=== PATIENT | male | born 1990 ===

== ENCOUNTER 2020-05-19 09:48 | Observation (INO) ==
--- NOTE | 2020-05-06 16:37 | Anesthesiology Consultation ---
Date of Service May 06, 2020 Assessment & Plan (1) Encounter for pre-operative examination: COVID Status: As of 05/06 nurse assessment, patient denies travel to endemic area, known exposure/sick contacts, or symptoms of COVID19. Preoperative COVID19 testing to be completed on 05/10 at [facility]. Chart Review Chart Review: Acceptable Risk for Surgery and Patient NOT seen in Pre Admission Testing History Surgery Operation Date: 05/19/20 11:00 Proposed Procedures p Laparoscopic Splenic Cyst Fenestration, Possible Open, Possible Open Splenectomy - Rik Hammond DO, FACS Height/Weight Height: 5 ft 11 in Weight: 77.111 kg Allergies Allergy/AdvReac Type Severity Reaction Status Date / Time No Known Allergies Allergy Verified 05/06/20 13:17 Medications Home Medications Medication Instructions Recorded Confirmed Last Taken No Known Home Medications 04/05/20 05/06/20 Unknown Past Medical History Medical History Splenic cyst, acquired Past Surgical History Surgical History History of laparoscopy ON SPLEEN Social History Smoking Status: Never smoker Do You Dip or Chew Tobacco: No Hx Alcohol Use: Yes Alcohol type: beer alcohol intake frequency: other Alcohol Intake Frequency Comment: 1 X COUPLE MONTHS Hx Substance Use: No Testing Laboratory Results 04/29/20 WBC: 6.24 H/H: 15.5/46.9 PLATELETS: 187 SODIUM: 138 POTASSIUM: 4.0 CHLORIDE: 104 CO2: 33 BUN: 10 CREATININE: 0.80 GLUCOSE: 84
[~2020-05-19 09:48] MED LIST: LACTATED RINGER'S 1,000 ML IV SCH; ceFAZolin 2000MG 2,000 MG/15 ML SYR IV SCH
--- NOTE | 2020-05-19 10:29 | History & Physical Bridge Note ---
Date of Service May 19, 2020 History & Physical Bridge Note I have examined the patient, reviewed the History & Physical and in the interval since the performance of the History & Physical I have noted the following changes of clinical significance: no changes noted
[2020-05-19] MEDS ORDERED: LIDOCAINE HCL 2% 2 ML VIAL/AMP(20MG/ML) INFIL ONE (11:42)
[2020-05-19] MEDS ORDERED: fentaNYL citrate 100 MCG/2 ML VIAL ONE ×2 (11:42→11:43)
[2020-05-19] MEDS ORDERED: PROPOFOL IV EMULSION 10 MG/ML 20 ML VIAL IV ONE (11:42)
[2020-05-19] MEDS ORDERED: GLYCOPYRROLATE 0.2 MG/ML VIAL ONE ×2 (11:42→15:09)
[2020-05-19] MEDS ORDERED: MIDAZOLAM HCL 1 MG/ML 2ML VIAL ONE (11:42)
[2020-05-19] MEDS ORDERED: ONDANSETRON INJ 2 MG/ML 2 ML VIAL ONE (11:42)
[2020-05-19] MEDS ORDERED: DEXAMETHASONE SOD INJ 4 MG/ML VIAL ONE (11:42)
[2020-05-19] MEDS ORDERED: NEOSTIGMINE METHYLSULFATE 5 MG/5 ML SYR ONE ×2 (11:42→15:09)
[2020-05-19] MEDS ORDERED: ONDANSETRON INJ 2 MG/ML 2 ML VIAL IV PRN ×2 (11:51→17:10)
[2020-05-19] MEDS ORDERED: ePHEDrine sulfate 50 MG/ML AMP IV PRN (11:51)
[2020-05-19] MEDS ORDERED: ATROPINE SULFATE 0.1 MG/ML 10ML SYR IV PRN (11:51)
[2020-05-19] MEDS ORDERED: HYDROmorphone INJ 1 MG/ML SYRINGE IV PRN (11:51)
[2020-05-19] MEDS ORDERED: BUPIVACAINE 0.5 % 5 MG/1 ML MPF 30ML VIAL ONE (13:25)
[2020-05-19] MEDS ORDERED: ROCURONIUM BROMIDE 10 MG/ML 5 ML VIAL IV ONE ×5 (14:40→15:09)
[2020-05-19] MEDS ORDERED: ACETAMINOPHEN 1000 MG/100 ML IV IV ONE (14:43)
--- NOTE | 2020-05-19 15:21 | Operative Report ---
PG Post Operative Report Pre & Post Diagnosis Operation Date: 05/19/20 11:20 Pre-Op Diagnosis: Splenic Cyst Post-Op Diagnosis: Splenic Cyst I identified the patient and participated in the time-out.: Yes Procedure Operation Date: 05/19/20 11:20 Actual Procedures p Laparoscopic Splenic Cyst Fenestration(Not Applicable) - Rik Hammond DO, JASON Surgeon Rik Hammond DO, JASON Dungeon Master Neri Roche Estimated Blood Loss 30 Findings Consistent with Post-Op Diagnosis Adhesions of dome of spleen to diaphragm from prior trauma. We unroofed several centimeters of the splenic subcapsular seroma and fenestrated as much of the cyst wall as we could. A portion of the cyst wall was sent for specimen and some fluid was sent for cytology. A 10 mm flat GLADIS drain was placed into the splenic subcapsular seroma cavity. Specimens Splenic cyst fluid for cytology Splenic cyst wall Drains 10 mm GLADIS drain in splenic cyst cavity Anesthesia Type General Complications none Disposition Accompanied Patient To Recovery: No Disposition: Recovery Room Indications 29-year-old male with history of trauma with splenic laceration and subcapsular hematoma. Patient developed a subcapsular seroma and is undergone several drainage procedures with temporary relief of his symptoms but recurrence of the fluid and abdominal discomfort, fullness, and early satiety. Discussed his options to include continued aspirations versus cyst fenestration, patient elects for cyst fenestration. Plan for laparoscopic splenic cyst fenestration, possible open, possible splenectomy. The risks of the procedure were discussed, all questions were answered, and the patient agreed to proceed with surgery as planned. Description of Procedure The patient was appropriately identified, consented, and taken to the operating room where he was placed in the supine position with both arms tucked and a roll under his left side. General endotracheal anesthesia was induced. SCDs, a safety belt, and a Ramírez catheter were placed. Preoperative antibiotics were given. His abdomen was prepped and draped in standard sterile fashion. A surgical timeout was performed and all parties were in agreement that this was correct patient and procedure to be performed we continued as planned. An incision was made overlying the rectus muscle superior and to the right of the umbilicus. Veress needle was inserted and saline drop test confirmed entry into the abdomen. The abdomen was insufflated with carbon dioxide which the patient tolerated without incident. The Veress needle was removed and the abdomen is entered using a 5 mm port and the Optiview technique. Patient was then placed in reverse Trendelenburg position. The abdomen was explored with the laparoscope and no damage from initial Veress needle or trocar placement was noted. There were adhesions of omentum to the spleen and omentum to the abdominal wall the left upper quadrant. There was also adhesions of the spleen to the diaphragm. 5 mm ports then placed in the left lower quadrant in the right upper quadrant. Some of the adhesions were taken down with harmonic scalpel. The spleen was densely adhered to the diaphragm at the dome. We were able to identify the area of the cyst. A large needle was placed into the cyst and some of the fluid was aspirated and sent to cytology. We then were able to unroofed a 5 x 4 cm segment of the cyst. This was removed with a 5 mm bag and sent to pathology as specimen. The remainder of the contents of the cyst were suctioned. The cyst wall was then fulgurated using electrocautery. Most of the fulguration occurred where we could safely see which was in the superior and lateral portions of the cyst wall. A 10 mm GLADIS drain was then inserted into the cyst cavity. Hemostasis appeared to be excellent. The 5 mm ports were removed under direct visualization and the abdomen was all owed to collapse. The drain was sutured into the right upper quadrant incision site with a 2-0 nylon suture. The remaining port sites were closed with 4-0 Monocryl subcuticular sutures. Dermabond was placed over the incisions and a drain dressing was placed over the GLADIS drain. The patient was extubated and taken to recovery where he recovered without apparent incident. All sponge, needle, and instrument counts were correct with occlusion of the case. The Ramírez catheter was removed prior to extubation. The patient tolerated procedure well. The physician's corporate law assistant was present and scrubbed for the entire the procedure. He was critical in positioning the patient, prepping and draping, driving the laparoscope, closure the incisions, placement the dressings. I attest to the content of the Intraoperative Record and any orders documented therein. Any exceptions are noted below.
[2020-05-19] MEDS: fentaNYL citrate 100 MCG/2 ML VIAL IV PRN ×3 (16:03→16:18)
--- NOTE | 2020-05-19 16:30 | Anesthesiology Progress Note ---
Date of Service May 19, 2020 Anesthesia Post Procedure Vital Signs Vital Signs: Temp Pulse Pulse Resp BP BP Pulse Ox 05/19/20 16:25 64 12 118/71 100 05/19/20 16:15 68 13 114/67 100 05/19/20 16:05 72 12 124/70 100 05/19/20 15:55 55 L 11 L 119/68 100 05/19/20 15:45 52 L 12 113/69 100 05/19/20 15:39 36.4 C L 63 17 123/76 100 05/19/20 10:16 36.7 C 55 L 20 110/75 99 Pain Intensity Abdomen: Pain Intensity: 4 Transfer of Care Handoff Completed per policy Notes Mental Status: alert / awake / arousable and participated in evaluation Patient Amnestic to Procedure: Yes Nausea / Vomiting: adequately controlled Pain: adequately controlled Airway Patency, RR, SpO2: stable & adequate BP & HR: stable & adequate Hydration State: stable & adequate Anesthetic Complications: no major complications apparent and Pt Satisfied with anesthetic care
[2020-05-19] MEDS ORDERED: MoRPHine SULFATE 4 MG/ML 1 ML CARP\\VIAL IV PRN (17:10)
[2020-05-19] MEDS ORDERED: MoRPHine SULFATE 2 MG/ML CARP IV PRN (17:10)
[2020-05-19] MEDS ORDERED: oxyCODONE/ACETAMINOPHEN 5mg/325mg TAB PO PRN ×2 (17:10)
[2020-05-19] MEDS ORDERED: MoRPHine SULFATE 4 MG/ML 1 ML CARP\\VIAL ONE (17:13)
[2020-05-19] MEDS: LACTATED RINGER'S 1,000 ML IV SCH ×2 (17:15→22:42)
[2020-05-20 07:07] LABS: Hematocrit (blood only) 41.4 % (42-52); Hemoglobin 14.2 g/dL (14.0-18.0); Immature Granulocytes # (auto) 0.02 K/uL (0.00-0.02); Immature Granulocytes % (auto) 0.2 %; Lymphocytes # (auto) 1.08 K/uL (1.2-3.4); Lymphocytes % (auto) 10.6 %; Mean Corpuscular Hemoglobin 27.8 pg (25-34); Mean Corpuscular Hgb Conc 34.3 g/dL (32-36); Mean Platelet Volume 12.2 fL (7.4-10.4); Monocytes # (auto) 0.76 K/uL (0.11-0.59); Monocytes % (auto) 7.5 %; Neutrophils # (auto) 8.34 K/uL (1.4-6.5); Neutrophils % (auto) 81.7 %; Platelet Count 188 K/uL (130-400); RDW Coefficient of Variation 13.3 % (11.5-14.5); RDW Standard Deviation 39.9 fL (36.4-46.3); Red Blood Count 5.11 M/uL (4.7-6.1)
[2020-05-20 07:46] LABS: BUN Creatinine Ratio 13.9 (10-20); Blood Urea Nitrogen 9 mg/dl (7-18); Calcium 8.7 mg/dl (8.5-10.1); Carbon Dioxide 26 mmol/L (21-32); Chloride 108 mmol/L (98-107); Creatinine Clr Calc Pharmacy 173.8 ml/min; Est GFR (African American) > 150.0; Est GFR (Non-African American) 130.9; Glucose 103 mg/dl (70-99); Potassium 4.3 mmol/L (3.5-5.1); Sodium 140 mmol/L (136-145)
[2020-05-20] MEDS: LACTATED RINGER'S 1,000 ML IV SCH (11:03)
--- NOTE | 2020-05-20 11:33 | Surgery Progress Note ---
Date of Service May 20, 2020 Assessment & Plan (1) Splenic cyst, acquired: POD#1 laparoscopic splenic cyst fenestration VSS, WBC 10, Hbg 14.2, Plt 188 Patient having some abdominal pain, but overall is being managed with prn medication Incisions c/d/i GLADIS drain serosanguineous (90cc); will ask nursing to perform GLADIS drain teaching with pt prior to discharge Pt will need to follow up in clinic in next few days for drain removal Will plan on discharge today, dispo instructions given Admission and Anticipated Discharge Date Admission Date: May 19, 2020 Supervising Physician Co-Signing Physician Notes Patient seen and examined, labs reviewed, agree with above. POD #1 laparoscopic splenic cyst fenestration. Overall doing well, complains of some pain but this is controlled with medications. Tolerating small amount of his diet to keep himself hydrated. On exam drain is serosanguineous, abdomen is soft. Incisions with no evidence of infection. Hematocrit stable. Plan for discharge to home with drain in place, follow-up next week for drain removal. Wound care instructions and activity restrictions reviewed. He will receive drain care instructions prior to departure. Return precautions given, call with questions or concerns Subjective Patient states he is doing fairly well. Having some pain in epigastric/LUQ regions, but says it is better than yesterday and is manageable with pain medication. He is tolerating a diet without n/v. Physical Exam Physical Exam: awake/alert Constitutional: well developed and well nourished no acute distress Respiratory: normal respiratory effort Gastrointestinal (Abdomen): Inspection/Auscultation: + abdominal surgical incision (c/d/i with dermabond overtop, no signs of infection) and + abdominal surgical drain present (GLADIS serosang with 90cc documented) Percussion/Palp ation: + abdomen tender (some ttp epigastric and LUQ regions) and abdomen soft Results & Data ([facility]) Vital Signs (Past 12 Hours) Vital Signs Temp Pulse Pulse Resp BP BP Pulse Ox 05/20/20 07:16 36.6 C 47 L 18 109/65 95 05/20/20 03:47 36.5 C 62 14 114/63 97 PG Care Time/CCT Total # of Minutes Spent Total Time Spent with Patient: Total time spent is greater than 50% in coordination of care (as documented) at patient's floor/unit and/or counseling patient: Coding Level of Care Code None Diagnoses Splenic cyst, acquired D73.4
--- NOTE | 2020-05-20 14:23 | Discharge Summary ---
Date of Service May 20, 2020 Principal Diagnosis Splenic cyst Discharge Exam Constitutional WD/WN, vitals as above Gastrointestinal (Abdomen) Inspection/Auscultation: + abdominal surgical incision (dry) and + abdominal surgical drain present (90 cc); abdomen not distended Percussion/Palpation: abdomen soft Discharge Data Allergies Allergy/AdvReac Type Severity Reaction Status Date / Time No Known Allergies Allergy Verified 05/19/20 10:15 Procedures Performed Operation Date: 05/19/20 11:20 Actual Procedures p Laparoscopic Splenic Cyst Fenestration(Not Applicable) - Rik Hammond DO, FACS Hospital Course (1) Splenic cyst, acquired: 29 y/o male with recurrent splenic cyst that began after trauma. He was taken to the operating room for laparoscopic fenestration of splenic cyst. He was transferred to the surgical floor for overnight observation. Vitals and labs remained stable and by the morning he was able to advance diet and tolerate oral analgesics. He was stable for discharge home in the afternoon with GLADIS drain to be removed in the clinic next week. Total Time Total Time Spent Total Time Spent (In Minutes): 10 Discharge Plan Discharge Items Patient Disposition: Home - Self-Care Reason For Visit: Spelnic Cyst Discharge Diagnosis: drainage of cyst Activity: As commented below Lifting: No more than 10 pounds Bathing Comment: ok to shower Exercise/Sports: Wait until after follow-up appointment Driving/Machine Use: do not resume driving while taking narcotics for pain Non-emergency contact: Surgeon Call non-emergency contact if: you have any medication questions, your pain is not controlled, you have a fever, your temperature is above 101.5 and your wound has increased redness Follow-up/Referrals: Rik Hammond DO, FACS [Physician] - 05/25/20 11:00 am (Please follow up in clinic early next week for drain removal, next sunday or ) [facility] [Primary Care Provider] - Diet: Regular Addtl Attending Provider Instructions: Please care for your drain as you were instructed prior to discharge from the hospital. Empty your drain 2-3 times daily as needed and record output. Pending Studies at Discharge: No Stand-Alone Forms: My [employer], Work/School Release (Inpt) Medications and DC Order Prescriptions: New oxycodone-acetaminophen [Percocet] 5-325 mg tablet 1 - 2 tab PO Q4H PRN (Reason: pain, initial therapy, max 6 daily) Qty: 15 RF: 0 Discharge Orders: Discharge Order (Routine); Ordered 05/20/20 Ordered By: Therese Blount/Other Patient Handouts: Surgery Post Op Drain Emptying Steps Admission Data Admit Date/Time: 05/19/20 15:25 Attending Provider: Rik Hammond Admit Provider: Rik Hammond Primary Care Provider: [facility] Other Interventions: Discharge Summary Assessment (RN) Last Done: 05/20/20 13:13 Coding Level of Care Code D/C Day Management <30 mins Diagnoses Splenic cyst, acquired D73.4
== END 2020-05-20 14:09 | disposition home or self-care (01) ==
LOC: 3N 09:48 → ASU 09:48
DX: D73.4 Cyst of spleen